=== PATIENT | male | born 1960 | race Caucasian/White ===

== ENCOUNTER → 2024-02-22 | Outpatient (CLI) | payer BC, SELFPAY ==
[2024-02-22 09:32] LABS: Basophils % (Auto) 1 % (0-2.5); Eosinophils # (Auto) 0.2 Thou/mm3 (0.0-0.5); Eosinophils % (Auto) 6 % (0-10); Hematocrit 44.7 % (41.0-53.0); Hemoglobin 14.5 g/dL (13.5-16.0); Immature Granulocytes % (Auto) 0 % (0-0); Immature Granulocytes Auto 0.01 Thou/mm3 (0.00-0.00); Lymphocytes # (Auto) 1.1 Thou/mm3 (1.0-4.8); Lymphocytes % (Auto) 36 % (10-50); Mean Corpuscular HGB Conc 32.4 g/dl (31.0-37.0); Mean Corpuscular Hemoglobin 28.8 pg (25.0-35.0); Mean Corpuscular Volume 89 fL (80-100); Monocytes # (Auto) 0.3 Thou/mm3 (0.0-0.8); Monocytes % (Auto) 11 % (0-12); Neutrophils # (Auto) 1.4 Thou/mm3 (1.8-7.7); Neutrophils % (Auto) 47 % (37-80); Nucleated Red Blood Cell % 0 /100 WBC (0); Platelet Count 232 Thou/mm3 (140-440); RDW Standard Deviation 45.1 fL (35.1-43.9); Red Blood Count 5.04 Miln/mm3 (4.50-5.90); White Blood Count 3.1 Thou/mm3 (3.8-10.6)
[2024-02-22 09:49] LABS: Prostate Specific Antigen 1.88 ng/mL (0-4.00)
[2024-02-22 09:51] LABS: Vitamin B12 822 pg/mL (211-911); Vitamin D 25 Hydroxy Total 42.5 ng/mL (7.3-40.2)
[2024-02-22 09:54] LABS: Alanine Aminotransferase 32 U/L (10-49); Albumin, Serum 4.4 gm/dL (3.4-4.8); Albumin/Globulin Ratio 2.2 (1.2-2.2); Alkaline Phosphatase 69 U/L (46-116); Anion Gap 5 (7-16); Aspartate Amino Transferase 44 U/L (0-34); BUN/Creatinine Ratio 19 Ratio (12-20); Bilirubin,Total 0.4 mg/dL (0.3-1.2); Blood Urea Nitrogen 19 mg/dL (9-23); Calcium 9.6 mg/dL (8.3-10.6); Calcium (Corrected) 9.6 mg/dL (8.5-10.1); Carbon Dioxide 29.3 mMol/L (20.0-31.0); Cardiac Risk Estimate 4.2 RATIO (4.0-6.7); Chloride 103 mMol/L (98-107); Cholesterol 191 mg/dL (132-200); Glucose 96 mg/dL (74-106); HDL Cholesterol 46 mg/dL (40-60); LDL Cholesterol,Calculated 135 mg/dL (0-130); Osmolality,Calculated 276 (275-295); Potassium 4.4 mMol/L (3.4-5.1); Sodium 137 mMol/L (136-145); Total Protein 6.4 gm/dL (5.7-8.2); Triglycerides 52 mg/dL (30-150); eGFR > 60 See Note
[2024-02-22 10:34] LABS: Sed Rate (ESR) 5 mm/hr (0-20)
== END | disposition home or self-care (01) ==
PROVIDERS: PCP Internal Medicine; Referring Provider Internal Medicine; Visit Provider Internal Medicine
DX: I10 Essential (primary) hypertension (principal); M15.9 Polyosteoarthritis, unspecified; N40.1 Benign prostatic hyperplasia with lower urinary tract symptoms; R23.3 Spontaneous ecchymoses
CPT/HCPCS: 36415; 80053; 80061; 82306; 82607; 83735; 84100; 84153; 85025; 85652

== ENCOUNTER → 2024-07-15 | Outpatient (CLI) | payer BC, SELFPAY ==
[2024-07-15 10:06] LABS: Collection Type, Urine Clean Catch; Squamous Epithelial Cell,Urine 0 /hpf (0-5)
--- NOTE | 2024-07-15 10:11 | XR_ITS ---
Examination: PA lateral chest 2 views TECHNIQUE: Upright PA lateral chest 2 views Exam date and time: July 07, 2024 at 1024 hours Comparison November 07, 2020 INDICATIONS: Right-sided chest pain beginning 2 months ago. FINDINGS: Normal heart size. Lungs are clear. Mild ectasia thoracic aorta. Moderate osteopenia IMPRESSION: No active disease
[2024-07-15 10:20] LABS: Basophils % (Auto) 1 % (0-2.5); Eosinophils # (Auto) 0.2 Thou/mm3 (0.0-0.5); Eosinophils % (Auto) 5 % (0-10); Hematocrit 45.2 % (41.0-53.0); Hemoglobin 15.3 g/dL (13.5-16.0); Immature Granulocytes % (Auto) 0 % (0-0); Lymphocytes % (Auto) 27 % (10-50); Mean Corpuscular HGB Conc 33.8 g/dl (31.0-37.0); Mean Corpuscular Hemoglobin 28.8 pg (25.0-35.0); Mean Corpuscular Volume 85 fL (80-100); Monocytes # (Auto) 0.3 Thou/mm3 (0.0-0.8); Monocytes % (Auto) 7 % (0-12); Neutrophils # (Auto) 2.2 Thou/mm3 (1.8-7.7); Neutrophils % (Auto) 60 % (37-80); Nucleated Red Blood Cell % 0 /100 WBC (0); Platelet Count 227 Thou/mm3 (140-440); RDW Standard Deviation 45.2 fL (35.1-43.9); Red Blood Count 5.32 Miln/mm3 (4.50-5.90); White Blood Count 3.7 Thou/mm3 (3.8-10.6)
[2024-07-15 10:39] LABS: Amorphous Crystals,Urine Present (Absent); Bacteria,Urine Rare; Bilirubin,Urine Negative (Negative); Blood,Urine Negative (Negative); Color,Urine Yellow (Lt Yel-Yel); Culture Indicated,Urine Not Indicated; Glucose, Urine Negative (Negative); Ketones,Urine Negative (Negative); Leukocyte Esterase,Urine Negative (Negative); Nitrite,Urine Negative (Negative); PH,Urine 7.5 (5.0-7.0); Protein,Urine Negative (Neg - Trace); RBC,Urine 2 /hpf (0-3); Specific Gravity,Urine 1.019 (1.001-1.035); Urobilinogen,Urine Negative mg/dL (0.0-1.0); WBC,Urine 2 /hpf (0-5)
[2024-07-15 10:40] LABS: Clarity,Urine Hazy (Clear/Hazy)
[2024-07-15 11:47] LABS: Alanine Aminotransferase 21 U/L (10-49); Albumin, Serum 4.7 gm/dL (3.4-4.8); Albumin/Globulin Ratio 1.8 (1.2-2.2); Alkaline Phosphatase 70 U/L (46-116); Anion Gap 8 (7-16); Aspartate Amino Transferase 24 U/L (0-34); BUN/Creatinine Ratio 16 Ratio (12-20); Bilirubin,Total 0.4 mg/dL (0.3-1.2); Blood Urea Nitrogen 16 mg/dL (9-23); Calcium 10.6 mg/dL (8.3-10.6); Calcium (Corrected) 10.6 mg/dL (8.5-10.1); Carbon Dioxide 29.4 mMol/L (20.0-31.0); Cardiac Risk Estimate 4.5 RATIO (4.0-6.7); Chloride 102 mMol/L (98-107); Cholesterol 209 mg/dL (132-200); Free T4 (Free Thyroxine) 1.52 ng/dL (0.89-1.76); Globulin 2.6 gm/dL (2.3-3.5); Glucose 98 mg/dL (74-106); HDL Cholesterol 46 mg/dL (40-60); LDL Cholesterol,Calculated 136 mg/dL (0-130); Osmolality,Calculated 278 (275-295); Potassium 5.1 mMol/L (3.4-5.1); Sodium 139 mMol/L (136-145); Thyroid Stimulating Hormone 1.07 uIU/mL (0.55-4.78); Total Protein 7.3 gm/dL (5.7-8.2); Triglycerides 135 mg/dL (30-150); eGFR > 60 See Note
[2024-07-15 11:50] LABS: Glucose Estimated Average 108 mg/dL (80-131); Hemoglobin A1C 5.4 % Hgb (4.8-6.0)
[2024-07-15 11:53] LABS: Vitamin D 25 Hydroxy Total 47.3 ng/mL (7.3-40.2)
[2024-07-15 12:58] LABS: Amphetamine/Methamp Scrn,U Negative (Negative); Barbiturate Screen,Urine Negative (Negative); Benzodiazepines Screen,Urine Negative (Negative); Benzoylecgonine Screen, Ur Negative (Negative); Creatinine MALB Rnd Ur 92 mg/dL (30-125); Fentanyl Screen,Urine Negative (Negative); Microalbumin, Random Urine < 3 mg/L (0-300); Opiate Screen,Urine Negative (Negative); THC Screen,Urine Negative (Negative)
[2024-07-26 13:47] LABS: HCV RNA, PCR <15 NOT DETECTED IU/mL; PSA, Free 0.19 ng/mL; PSA, Total 5.1 ng/mL (< OR = 4.0)
[2024-07-27 06:13] LABS: HCV RNA, PCR Log IU <1.18 NOT DETECTED Log IU/mL; PSA, % Free 4 % (calc) (>25); T3 Uptake* 30 % (22-35)
== END | disposition home or self-care (01) ==
PROVIDERS: PCP Nurse Practitioner Family; Referring Provider Nurse Practitioner Family; Visit Provider Radiology Diagnostic Radiology
DX: R07.81 Pleurodynia (principal); E78.5 Hyperlipidemia, unspecified; M15.9 Polyosteoarthritis, unspecified; M54.2 Cervicalgia; N20.0 Calculus of kidney; N40.1 Benign prostatic hyperplasia with lower urinary tract symptoms; R79.89 Other specified abnormal findings of blood chemistry; Z87.442 Personal history of urinary calculi
CPT/HCPCS: 36415; 71046; 80053; 80061; 80307; 81001; 82043; 82306; 82570; 83036; 84153; 84154; 84439; 84443; 84479; 85025; 87522

== ENCOUNTER → 2024-08-19 | Outpatient (CLI) | payer BC, SELFPAY ==
--- NOTE | 2024-08-19 15:00 | XR_ITS ---
Examination: Ultrasound soft tissue extremity right axilla TECHNIQUE: Grayscale sonographic images soft tissue right axilla Exam date and time: August 19, 2024 1543 hours INDICATIONS: Right axillary pain and palpable lump noticed beginning one year ago FINDINGS: No cystic or solid mass noted IMPRESSION: No cystic or solid mass noted If palpable abnormality remains, consider CT chest post intravenous contrast follow-up
== END | disposition home or self-care (01) ==
LOC: CDIM 14:36
PROVIDERS: PCP Nurse Practitioner Family; Referring Provider Nurse Practitioner Family; Visit Provider Nurse Practitioner Family
DX: M79.621 Pain in right upper arm (principal)
CPT/HCPCS: 76882

== ENCOUNTER → 2024-09-28 | Outpatient (CLI) | payer BC, SELFPAY ==
--- NOTE | 2024-09-28 14:23 | XR_ITS ---
Examination: Abdomen AP single view Technique: AP portable supine abdomen, single view Exam date and time: September 28, 2024 1429 hours INDICATIONS: Frequent urination one year, history kidney stones FINDINGS: 12 mm mid to upper pole left renal calculus 2 mm lower pole left renal calculus No ureteral calculi Nonobstructive bowel gas pattern IMPRESSION: 12 mm mid to upper pole, 2 mm lower pole left renal calculi
--- NOTE | 2024-09-28 14:30 | XR_ITS ---
Examination: Abdomen sonogram, complete Date and time of exam: September 28, 2024 1429 hours INDICATIONS: History kidney stones 8 years. Technique: Multiple real-time grayscale transabdominal sonographic images of the abdomen have been obtained. Findings: Normal gallbladder Normal common bile duct 0.5 cm Pancreatic head 1.9 cm Aorta not enlarged Liver 16 cm no liver lesions Normal hepatopedal portal venous flow Patent IVC Right kidney 10.7 cm cortex 1.7 cm 8 mm lower pole right renal calculus Left kidney 10.7 cm cortex 2.5 cm Lateral 13 mm renal calculus Lower pole left renal cyst 24 mm Spleen not enlarged IMPRESSION: Bilateral nonobstructing renal calculi
== END | disposition home or self-care (01) ==
PROVIDERS: PCP Nurse Practitioner Family; Referring Provider Nurse Practitioner Family; Visit Provider Nurse Practitioner Family
DX: N20.0 Calculus of kidney (principal); N28.1 Cyst of kidney, acquired
CPT/HCPCS: 74018; 76700

== ENCOUNTER → 2025-04-07 | Outpatient (CLI) | payer BC, SELFPAY ==
[2025-04-07 08:56] LABS: Iron 129 mcg/dL (65-175); Percent Iron Saturation 39 % (20-55); Total Iron Binding Capacity 326 mcg/dL (250-425); Unsaturated Iron Binding 197 (225-295)
[2025-04-07 09:01] LABS: Folate 16.95 ng/mL (>5.38); Vitamin B12 1159 pg/mL (211-911); Vitamin D 25 Hydroxy Total 57.2 ng/mL (7.3-40.2)
[2025-04-07 09:07] LABS: Albumin, Serum 4.7 gm/dL (3.4-4.8); Free T4 (Free Thyroxine) 1.63 ng/dL (0.89-1.76); Thyroid Stimulating Hormone 3.42 uIU/mL (0.55-4.78)
[2025-04-17 07:07] LABS: DHEA Sulfate* 57 mcg/dL (24-244); SHBG 48 nmol/L (22-77)
[2025-04-17 07:08] LABS: Albumin 4.7 g/dL (3.6-5.1); T3 Uptake* 28 % (22-35); Testosterone, Bioavailable 71.2 ng/dL (110.0-575.0); Testosterone, Free 33.2 pg/mL (46.0-224.0); Testosterone,Total 357 ng/dL (250-1100)
== END | disposition home or self-care (01) ==
LOC: COPL 07:18
PROVIDERS: PCP Nurse Practitioner Family; Referring Provider Nurse Practitioner Family; Visit Provider Nurse Practitioner Family
DX: R53.82 Chronic fatigue, unspecified (principal)
CPT/HCPCS: 36415; 82040; 82306; 82607; 82627; 82746; 83540; 83550; 84270; 84403; 84439; 84443; 84479